=== PATIENT | female | born 1990 | race American Indian/Alaskan Native ===

== ENCOUNTER 2016-07-22 09:19 | Emergency (ER) | payer OTHER ==
[2016-07-22 09:59] LABS: Basophils % (Auto) 0.3 % (0.0-1.8); Eosinophils % (Auto) 5.7 % (0.0-4.3); Hematocrit 38.7 % (30.3-42.9); Hemoglobin 12.4 gm/dl (10.1-14.3); Mean Corpuscular HGB Conc 32 % (30-34); Mean Corpuscular Hemoglobin 28 pg (28-32); Mean Corpuscular Volume 89 fl (79-97); Platelet Count 253 K/mm3 (140-440); Red Blood Count 4.35 M/mm3 (3.65-5.03); White Blood Count 9.2 K/mm3 (4.5-11.0)
[2016-07-22 10:13] LABS: Anion Gap 18 mmol/L; BUN/Creatinine Ratio 38.33; Blood Urea Nitrogen 23 mg/dL (7-17); Calcium 8.5 mg/dL (8.4-10.2); Carbon Dioxide 23 mmol/L (22-30); Chloride 104.5 mmol/L (98-107); Glucose 104 mg/dL (65-100); Potassium 3.6 mmol/L (3.6-5.0); Sodium 142 mmol/L (137-145)
[2016-07-22] MEDS ORDERED: PROVENTIL IH ONE ×2 (11:21→11:22)
--- NOTE | 2016-07-22 14:31 | XRay Report ---
ROUTINE CHEST, TWO VIEWS: HISTORY: Shortness of breath. The trachea, heart, mediastinal contour, lung massey and bony thorax are unremarkable. IMPRESSION: Unremarkable chest x-ray.
[2016-07-23] MEDS ORDERED: TYLENOL ONE (03:03)
[2016-07-23] MEDS ORDERED: TYLENOL PO ONE (03:03)
[2016-07-23] MEDS ORDERED: NACL 0.9% 1000 ML 1,000 ML IV ONE (03:46)
--- NOTE | 2016-07-23 03:46 | Emergency Department Report ---
ED Abdominal Pain HPI - General Chief Complaint: Dyspnea/Respdistress Stated Complaint: DIFFICULTY BREATHING Time Seen by Provider: 07/23/16 03:29 Source: patient Mode of arrival: Ambulatory Limitations: No Limitations - History of Present Illness Initial Comments: Is a 26-year-old female with a history of tachycardia presenting to the ER with abdominal pain, congestion, and SOB. Patient says for the last 2 days she's had constant sharp suprapubic pain with associated fever, nausea, SOB, and vomiting 3 episodes. Exacerbated and alleviated by nothing. Patient also reports new diagnosis of tachycardia made by her PMD 1 week ago, patient is taking a new medication she cannot recall at this time. However patient does report she is compliant on her medication. Otherwise no headaches, dizziness, chest pain, dysuria, hematuria, back pain, h/o renal colic, surgeries, trauma, falls, travel, sick contacts Severity scale (0 -10): 10 - Related Data Previous Rx's Medication Instructions Recorded Last Taken Type ALBUTEROL Inhaler [ProAir HFA 2 puff IH QID PRN #1 inhalation 02/26/14 Unknown Rx Inhaler] Allergies Allergy/AdvReac Type Severity Reaction Status Date / Time shrimp Allergy Rash Verified 07/23/16 04:22 ED Review of Systems ROS: Stated complaint: DIFFICULTY BREATHING Other details as noted in HPI Comment: All other systems reviewed and negative ED Past Medical Hx - Past Medical History Previous Medical History?: No - Surgical History Past Surgical History?: No - Social History Smoking Status: Never Smoker Substance Use Type: None - Medications Home Medications: Home Medications Medication Instructions Recorded Confirmed Last Taken Type ALBUTEROL Inhaler [ProAir HFA 2 puff IH QID PRN #1 inhalation 02/26/14 Unknown Rx Inhaler] ED Physical Exam - General Limitations: No Limitations General appearance: alert, in no apparent distress - Head Head exam: Present: atraumatic, normocephalic - Eye Eye exam: Present: normal appearance - ENT ENT exam: Present: mucous membranes moist - Neck Neck exam: Present: normal inspection - Respiratory Respiratory exam: Present: normal lung sounds bilaterally. Absent: respiratory distress, wheezes, rales, rhonchi - Cardiovascular Cardiovascular Exam: Present: normal rhythm, tachycardia, normal heart sounds. Absent: regular rate, systolic murmur, diastolic murmur, rubs, gallop - GI/Abdominal GI/Abdominal exam: Present: soft, tenderness (suprapbubic), normal bowel sounds , other (No pain at McBurneys point). Absent: distended, guarding, rebound, rigid, hernia - Extremities Exam Extremities exam: Present: normal inspection - Back Exam Back exam: Present: normal inspection - Neurological Exam Neurological exam: Present: alert, oriented X3 - Psychiatric Psychiatric exam: Present: normal affect, normal mood - Skin Skin exam: Present: warm, dry, intact, normal color. Absent: rash ED Course Vital Signs 07/22/16 07/22/16 07/23/16 09:26 15:57 02:57 Temperature 98.2 F 97.9 F 102.0 F H Pulse Rate 117 H 112 H 125 H Respiratory 16 22 18 Rate Blood Pressure 132/89 119/76 109/72 O2 Sat by Pulse 100 98 99 Oximetry ED Medical Decision Making - Lab Data Result diagrams: 07/22/16 09:41 07/22/16 09:41 - EKG Data -: EKG Interpreted by Me - EKG Data 07/23/16 03:50 EKG time 931 07/22/2016: Sinus tachycardia 1 17 bpm QTC 451 ms, normal axis, no LVH, left atrial enlargement, incomplete right bundle-branch block, no ST changes, no STEMI - Radiology Data Radiology results: report reviewed Chest x-ray: No acute findings as visualized by me CTA chest: Pneumonitis vs atelectasis at left lung base, no PE - Medical Decision Making Pt has fever here in the ED 102, tachycardia, and SOB. Though D-Dimer is <250, will obtain CTA of chest to rule out PE CTA: neg for PE Results discussed with patient and her fiance at bedside. Pt reports improvement and is hungry. Pt reports she takes atenololl for her tachycardia. I asked the patient if she has ever had her thyroid function checked she is unsure. I advised that when she follow up with her PMD she have her thyroid assessed. Pt understood. Instructed patient to return to the ED if her abdominal pain worsens. Critical care attestation.: If time is entered above; I have spent that time in minutes in the direct care of this critically ill patient, excluding procedure time. ED Disposition Clinical Impression: Abdominal pain, Fever, Pneumonitis, Tachycardia Disposition: DISCHARGED TO HOME OR SELFCARE Is pt being admited?: No Condition: Stable Instructions: Abdominal Pain (ED), Fever in Adults (ED) Additional Instructions: PLEASE FOLLOW UP WITH YOUR PMD HAVE YOUR THYROID ASSESSED BY YOUR PMD RETURN TO THE ED IF YOU FEVER DOES NOT IMPROVE OR IF YOU SYMPTOMS WORSEN Referrals: PRIMARY CARE,MD [Primary Care Provider] - 3-5 Days
[2016-07-23 04:43] LABS: Bacteria,Urine 1+ /HPF (Negative); Bilirubin,Urine NEG (Negative); Blood,Urine LG (Negative); Ketones,Urine 20 mg/dL (Negative); Leukocyte Esterase,Urine NEG (Negative); Mucus,Urine 3+ /HPF; Nitrite,Urine NEG (Negative); Urobilinogen,Urine < 2.0 mg/dL (<2.0)
[2016-07-23] MEDS ORDERED: NACL ONE (04:59)
--- NOTE | 2016-07-23 05:50 | Cat Scan Report ---
FINAL REPORT EXAM: CT ANGIO CHEST HISTORY: TACHYCARDIA, SOB ?PE TECHNIQUE: A CT of the chest was performed from thoracic inlet to diaphragm. 100 cc Omnipaque 350 IV was administered. Coronal and sagittal reformatted images were obtained. PRIORS: None. FINDINGS: There is no significant mediastinal or hilar mass seen. There are no pleural effusions seen. There is no pneumothorax seen. There is a small focal area of pneumonitis or atelectasis at the left lung base. The remaining lungs are clear. IMPRESSION: Small focal area of pneumonitis or atelectasis at the left lung base. No other significant finding.
[2016-07-23 06:21] VITALS: BP 115/78
== END 2016-07-23 06:15 | disposition home or self-care (01) ==
LOC: ED 09:19
DX: J18.9 Pneumonia, unspecified organism (principal); R10.30 Lower abdominal pain, unspecified; Z91.013 Allergy to seafood
CPT/HCPCS: 36415; 71020; 71275; 80048; 81001; 81025; 84484; 84703; 85025; 85379; 93005; 93010; 96360; 99285; J7030; Q9967